=== PATIENT | male | born 1985 | race Caucasian/White ===

== ENCOUNTER 2018-07-07 22:20 | Emergency (ER) | payer MEDICAID, OTHER ==
[2018-07-08] MEDS: KETOROLAC 30 MG INJ IM (01:06)
== END 2018-07-08 03:51 | disposition home or self-care (01) ==
LOC: FTE 22:20
DX: M25.561 Pain in right knee (principal); Z87.891 Personal history of nicotine dependence
CPT/HCPCS: 73562; 93971; 96372; 99285-25